=== PATIENT | male | born 1965 | race African-American/Black ===

== ENCOUNTER 2018-02-10 09:29 | Emergency (ER) | payer SELFPAY ==
--- NOTE | 2018-02-10 11:21 | EDPHYS ---
Physician Documentation [facility] Name: Ganesh Mendes Age: 52 yrs Sex: Male : 1965 Arrival Date: 02/10/2018 Time: 09:31 Bed 17 Private MD: None, None ED Physician Neal Boone HPI: 02/10 10:17 This 52 yrs old presents to ER via Unassigned with complaints of Sore Throat. kb 10:17 The patient presents with sore throat. The patient describes throat pain as kb intermittent. Onset: The symptoms/episode began/occurred 1 month(s) ago, and became worse yesterday. Severity of symptoms: At their worst the symptoms were moderate, in the emergency department the symptoms are unchanged. Modifying factors: The symptoms are alleviated by nothing, the symptoms are aggravated by swallowing, Patient's oral intake status: good Denies contact with similarly ill indivduals. Associated signs and symptoms: Pertinent positives: fever, Sore throat Pertinent negatives chest pain, chills, cough, diarrhea, dysphagia, earache, flu-like symptoms, headache, nausea, rhinorrhea, shortness of breath, vomiting. The patient has not experienced similar symptoms in the past. The patient has not recently seen a physician. Pt states he has had a sore throat intermittently for a month. Pain is worse in the mornings and gets better throughout the day. Reports fever, "felt hot," but did not take temperature. Has had pain every morning for the past 3 days, worse yesterday.. Historical: - Allergies: 11:40 No Known Allergies; hj - Home Meds: 11:40 None [Active]; hj - PMHx: 11:40 None; hj - PSHx: 11:40 None; hj - Immunization history:: Adult Immunizations up to date. - Social history:: Smoking status: Patient/guardian denies using tobacco, Patient/guardian denies using alcohol. - Ebola Screening: : Patient negative for fever greater than or equal to 101.5 degrees Fahrenheit, and additional compatible Ebola Virus Disease symptoms Patient denies exposure to infectious person Patient denies travel to an Ebola-affected area in the 21 days before illness onset. ROS: 10:17 Neck: Negative for injury, pain, and swelling, Cardiovascular: Negative for chest pain, kb palpitations, and edema, Respiratory: Negative for shortness of breath, cough, wheezing, and pleuritic chest pain, Abdomen/GI: Negative for abdominal pain, nausea, vomiting, diarrhea, and constipation, Back: Negative for injury and pain, MS/Extremity: Negative for injury and deformity, Skin: Negative for injury, rash, and discoloration, Neuro: Negative for headache, weakness, numbness, tingling, and seizure. 10:17 Constitutional: Positive for fever. 10:17 ENT: Positive for sore throat. Exam: 10:17 Constitutional: This is a well developed, well nourished patient who is awake, alert, kb and in no acute distress. Head/Face: Normocephalic, atraumatic. Chest/axilla: Normal chest wall appearance and motion. Nontender with no deformity. No lesions are appreciated. Cardiovascular: Regular rate and rhythm with a normal S1 and S2. No gallops, murmurs, or rubs. Normal PMI, no JVD. No pulse deficits. Respiratory: Lungs have equal breath sounds bilaterally, clear to auscultation and percussion. No rales, rhonchi or wheezes noted. No increased work of breathing, no retractions or nasal flaring. Abdomen/GI: Soft, non-tender, with normal bowel sounds. No distension or tympany. No guarding or rebound. No evidence of tenderness throughout. Back: No spinal tenderness. No costovertebral tenderness. Full range of motion. Skin: Warm, dry with normal turgor. Normal color with no rashes, no lesions, and no evidence of cellulitis. MS/ Extremity: Pulses equal, no cyanosis. Neurovascular intact. Full, normal range of motion. Neuro: Awake and alert, GCS 15, oriented to person, place, time, and situation. Cranial nerves II-XII grossly intact. Motor strength 5/5 in all extremities. Sensory grossly intact. Cerebellar exam normal. Normal gait. 10:17 ENT: Posterior pharynx: Airway: normal, no evidence of obstruction, Tonsils: bilaterally enlarged, with erythema, Uvula: normal, midline, swelling, that is mild, erythema, that is moderate, exudate, is not appreciated. Vital Signs: 11:41 BP 124 / 81; Pulse 75; Resp 18; Pulse Ox 100% on R/A; hj MDM: 10:16 Patient medically screened. kb 10:17 Data reviewed: vital signs, nurses notes. Data interpreted: Pulse oximetry: on room air kb is 100 %. Interpretation: normal. 11:19 Counseling: I had a detailed discussion with the patient and/or guardian regarding: the kb historical points, exam findings, and any diagnostic results supporting the discharge/admit diagnosis, lab results, the need for outpatient follow up, a family practitioner, to return to the emergency department if symptoms worsen or persist or if there are any questions or concerns that arise at home. 02/10 10:22 Order name: Strep kb Administered Medications: No medications were administered Disposition: 14:24 Co-signature as Attending Physician, Neal Boone MD. rn Disposition: 02/10/18 11:20 Discharged to Home. Impression: Acute pharyngitis. - Condition is Stable. - Discharge Instructions: Pharyngitis, [id number], Sore Throat, [id number]. - Medication Reconciliation Form, Thank You Letter, Antibiotic Education, Prescription Opioid Use, Work release form form. - Follow up: Emergency Department; When: As needed; Reason: Worsening of condition. Follow up: Private Physician; When: 2 - 3 days; Reason: Recheck today's complaints, Continuance of care, Re-evaluation by your physician. Signatures: Dispatcher [employer] EDMS Keya Montoya, COMPLIANCE REPRESENTATIVE-C COMPLIANCE REPRESENTATIVE-Ckb Neal Boone MD MD rn Joaquin, Henry, RN RN hj Corrections: (The following items were deleted from the chart) 11:41 11:20 02/10/2018 11:20 Discharged to Home. Impression: Acute pharyngitis. Condition is hj Stable. Forms are Medication Reconciliation Form, Thank You Letter, Antibiotic Education, Prescription Opioid Use. Follow up: Emergency Department; When: As needed; Reason: Worsening of condition. Follow up: Private Physician; When: 2 - 3 days; Reason: Recheck today's complaints, Continuance of care, Re-evaluation by your physician. kb
--- NOTE | 2018-02-10 11:21 | ER ---
Nurse's Notes [facility] Name: Ganesh Mendes Age: 52 yrs Sex: Male : 1965 Arrival Date: 02/10/2018 Time: 09:31 Bed 17 Private MD: None, None Diagnosis: Acute pharyngitis Presentation: 02/10 10:06 Note paper chart. hj 10:06 Acuity: LELO 4 hj 10:06 Presenting complaint: Patient states: sore throat for a year and its worse yesterday;. hj Transition of care: patient was not received from another setting of care. Onset of symptoms was February 10, 2018. Risk Assessment: Do you want to hurt yourself or someone else? Patient reports no desire to harm self or others. Initial Sepsis Screen: Does the patient meet any 2 criteria? No. Patient's initial sepsis screen is negative. Does the patient have a suspected source of infection? No. Patient's initial sepsis screen is negative. Care prior to arrival: None. 10:06 Method Of Arrival: Ambulatory Historical: - Allergies: 11:40 No Known Allergies; hj - Home Meds: 11:40 None [Active]; hj - PMHx: 11:40 None; hj - PSHx: 11:40 None; hj - Immunization history:: Adult Immunizations up to date. - Social history:: Smoking status: Patient/guardian denies using tobacco, Patient/guardian denies using alcohol. - Ebola Screening: : Patient negative for fever greater than or equal to 101.5 degrees Fahrenheit, and additional compatible Ebola Virus Disease symptoms Patient denies exposure to infectious person Patient denies travel to an Ebola-affected area in the 21 days before illness onset. Screenin:06 Abuse screen: Denies threats or abuse. Denies injuries from another. Nutritional hj screening: No deficits noted. Tuberculosis screening: No symptoms or risk factors identified. Fall Risk None identified. Assessment: 10:06 General: Appears in no apparent distress. uncomfortable, Behavior is calm, cooperative, hj appropriate for age. Pain: Complains of pain in throat. Neuro: Level of Consciousness is awake, alert, obeys commands, Oriented to person, place, time, situation, Appropriate for age. Cardiovascular: Capillary refill < 3 seconds Patient's skin is warm and dry. Respiratory: Airway is patent Respiratory effort is even, unlabored, Respiratory pattern is regular, Breath sounds are clear bilaterally. GI: No signs and/or symptoms were reported involving the gastrointestinal system. : No signs and/or symptoms were reported regarding the genitourinary system. EENT: Throat is reddened. Derm: No signs and/or symptoms reported regarding the dermatologic system. Musculoskeletal: No signs and/or symptoms reported regarding the musculoskeletal system. 11:12 Reassessment: strep negative per Nestor, lab;. hj Vital Signs: 11:41 BP 124 / 81; Pulse 75; Resp 18; Pulse Ox 100% on R/A; hj ED Course: 09:31 Patient arrived in ED. mr 09:31 None, None is Private Physician. mr 10:05 Reggie Quinones, RN is Primary Nurse. hj 10:16 [facility]C [facility]. kb 10:16 Neal Boone MD is Attending Physician. kb 11:16 Triage completed. hj 11:16 Arm band placed on right wrist. hj 11:38 No provider procedures requiring assistance completed. Patient did not have IV access hj during this emergency room visit. 11:40 Patient has correct armband on for positive identification. Bed in low position. Call hj light in reach. Side rails up X 1. Administered Medications: No medications were administered Outcome: 11:20 Discharge ordered by . kb 11:39 Discharged to home ambulatory. hj 11:39 Condition: stable 11:39 Discharge instructions given to patient, Instructed on discharge instructions, follow up and referral plans. Demonstrated understanding of instructions, follow-up care. 11:41 Patient left the ED. hj Signatures: Keya Montoya FNP-C FNP-Ckb Rivera, Maria Reggie Quinones, RN RN ju
== END 2018-02-10 11:41 | disposition home or self-care (01) ==
LOC: ER 09:29
DX: J02.9 Acute pharyngitis, unspecified (principal)
CPT/HCPCS: 87070; 87081; 99281

== ENCOUNTER 2019-06-11 03:56 | Emergency (ER) | payer SELFPAY ==
[2019-06-11] MEDS ORDERED: TETANUS & DIPHTHERIA TOX,ADULT 0.5 ML VIAL ONE (05:06)
[2019-06-11] MEDS ORDERED: LIDOCAINE 1% MPF 5 ML VIAL ONE (05:40)
[2019-06-11] MEDS ORDERED: LIDOCAINE 1% MPF 30 ML VIAL ONE (05:41)
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
[2019-06-11] MEDS ORDERED: ONDANSETRON 4 MG (ODT) TAB ONE (06:16)
[2019-06-11] MEDS ORDERED: TRAMADOL HCL 50 MG TAB ONE (06:17)
[2019-06-11 06:27] VITALS: TEMP 98.3
[2019-06-11 06:29] VITALS: BP 120/83; O2SAT 98
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
== END 2019-06-11 06:22 | disposition home or self-care (01) ==
LOC: ER 03:56
PROC: 0JQ10ZZ Repair Face Subcutaneous Tissue and Fascia, Open Approach (ICD-10-PCS; principal; 2019-06-11)
PROC: 0CQ0XZZ Repair Upper Lip, External Approach (ICD-10-PCS; 2019-06-11)
DX: S01.511A Laceration without foreign body of lip, initial encounter (principal); S02.2XXA Fracture of nasal bones, initial encounter for closed fracture; W50.0XXA Accidental hit or strike by another person, initial encounter; Y93.9 Activity, unspecified; Y92.9 Unspecified place or not applicable; Z23 Encounter for immunization
CPT/HCPCS: 70450; 70486; 76377; 90471; 90714; 99284

== ENCOUNTER 2021-05-03 11:53 | Emergency (ER) | payer OTHER, SELFPAY ==
[2021-05-03] MEDS ORDERED: ONDANSETRON 4 MG/2 ML VIAL ONE (15:24)
[2021-05-03] MEDS ORDERED: NA CHLORIDE 0.9% 1,000 ML ONE ×2 (15:24→16:28)
[2021-05-03 15:36] LABS: Absolute Lymphocytes (CBC) 0.2 K/uL (0.7-4.9); Basophils % 0.5 % (0-1.3); Hematocrit 47.7 % (39.6-49.0); Lymphocytes % 4.1 % (15.3-44.8); MPV 8.8 fL (7.6-11.3)
[2021-05-03 15:52] LABS: Albumin 3.9 g/dL (3.4-5.0); Bilirubin Direct 0.2 mg/dL (0-0.2); Bilirubin Total 1.2 mg/dL (0.2-1.0); Magnesium 2.3 mg/dL (1.8-2.4); Potassium 3.5 mmol/L (3.5-5.1); Protein, Total 8.3 g/dL (6.4-8.2)
[2021-05-03 16:00] LABS: Blood Morphology Comment NOT SEEN (NOT SEEN); Platelet Estimate ADEQ; White Blood Cell Scan OK (OK)
--- NOTE | 2021-05-03 16:37 | RAD REPORT ---
EXAM DESCRIPTION: CTAbdomen Pelvis W Contrast - 05/03/2021 4:19 pm CLINICAL HISTORY: ABD PAIN COMPARISON: No comparisons TECHNIQUE: CT of the abdomen and pelvis was performed. All CT scans are performed using dose optimization technique as appropriate and may include automated exposure control or mA/KV adjustment according to patient size. FINDINGS: Lower chest: Small hiatal hernia. Liver: Too small to characterize liver lesions which are likely benign. Biliary: No biliary ductal dilatation. Stomach: No significant focal abnormality. Duodenum: No significant focal abnormality. Pancreas: No significant abnormality. Spleen: No significant abnormality. Adrenal: No suspicious lesions. Kidney/ureter: No hydronephrosis. No renal calculi. Too small to characterize and/or benign appearing renal lesions are noted. Retroperitoneum: No retroperitoneal adenopathy. Vascular: No aneurysm. Bowel: Mesenteric edema, mild wall thickening, and fluid-filled distal small bowel. No evidence of liam wel obstruction. The appendix is within normal limits. Peritoneum: Mesenteric edema is noted. There is some fluid trapped in the right inguinal canal. Proba ble bilateral varicoceles. Fat containing umbilical hernia. Bladder: Grossly unremarkable. Reproductive: No adnexal masses. Bones: No acute fracture. Grade 1 anterolisthesis of L4 on L5. Other: n/a IMPRESSION: Mesenteric edema and small bowel wall thickening at the ileum most likely representing e nteritis. No bowel obstruction. Normal appendix.
[2021-05-03] MEDS ORDERED: CIPROFLOXACIN HCL 500 MG TAB ONE (17:16)
[2021-05-03] MEDS ORDERED: MAGNES/ALUMIN/SIMET 30ML UCUP ONE (17:26)
[2021-05-03] MEDS ORDERED: LIDOCAINE VISCOUS 2% SOLN 15 ML UDC ONE (17:27)
--- NOTE | 2021-05-03 17:29 | ER ---
Nurse's Notes [facility] Name: Ganesh Mendes Age: 55 yrs Sex: Male : 1965 Arrival Date: 05/03/2021 Time: 11:56 Bed 20 Private MD: Diagnosis: Nausea with vomiting, unspecified;Diarrhea, unspecified Presentation: 05/03 12:27 Chief complaint: Patient states: N/V/D that began last night. Pt states, "now my legs ss feels like rubber bands and my head hurts. I have no energy.". Coronavirus screen: Client denies travel out of the [place] in the last 14 days. Ebola Screen: Patient denies exposure to infectious person. Patient denies travel to an Ebola-affected area in the 21 days before illness onset. Initial Sepsis Screen: Does the patient meet any 2 criteria? No. Patient's initial sepsis screen is negative. Does the patient have a suspected source of infection? No. Patient's initial sepsis screen is negative. Risk Assessment: Do you want to hurt yourself or someone else? Patient reports no desire to harm self or others. Onset of symptoms was May 02, 2021. 12:27 Method Of Arrival: Ambulatory ss 12:27 Acuity: LELO 3 ss Historical: - Allergies: 12:28 No Known Allergies; ss - Home Meds: 12:29 None [Active]; ss - PMHx: 12:29 None; ss - PSHx: 12:29 None; ss - Immunization history:: Client reports receiving the 2nd dose of the Covid vaccine. - Social history:: Smoking status: Patient denies any tobacco usage or history of. Screenin:14 Abuse screen: Denies threats or abuse. Nutritional screening: No deficits noted. ll3 Tuberculosis screening: No symptoms or risk factors identified. 17:38 Fall Risk IV access (20 points). Mental Status- Oriented to own ability (0 pts). Total ll3 Woo Fall Scale indicates No Risk (0-24 pts). Assessment: 15:14 General: Appears in no apparent distress. uncomfortable, Behavior is calm, cooperative. ll3 Pain: Complains of pain in right upper quadrant and left upper quadrant Pain does not radiate. Quality of pain is described as aching, crampy, Pain began Last night Alleviated by rest, Aggravated by eating, drinking, repositioning. Neuro: Level of Consciousness is awake, alert, obeys commands, Oriented to person, place, time, situation, Speech is normal, Facial symmetry appears normal. Cardiovascular: Patient's skin is warm and dry. Respiratory: Airway is patent Respiratory effort is even, unlabored, Respiratory pattern is regular, symmetrical. GI: Abdomen is round non-distended, Stools are reported to be loose, Abd is soft and non tender X 4 quads. Reports upper abdominal pain, constipation, diarrhea, indigestion, intolerance of fluids, intolerance of food, nausea, vomiting, since Last night Patient currently denies tolerance of fluids, tolerance of food. Derm: Skin is pink, warm \\T\\ dry. 16:30 Reassessment: Patient appears in no apparent distress at this time. Patient and/or ll3 family updated on plan of care and expected duration. Pain level reassessed. Patient is alert, oriented x 3, equal unlabored respirations, skin warm/dry/pink. Patient states symptoms have improved. 17:21 Reassessment: Patient appears in no apparent distress at this time. Patient and/or ll3 family updated on plan of care and expected duration. Pain level reassessed. Patient is alert, oriented x 3, equal unlabored respirations, skin warm/dry/pink. Patient states feeling better. Vital Signs: 12:27 Pulse 110; Resp 17; Pulse Ox 97% on R/A; Weight 81.65 kg; Height 5 ft. 7 in. (170.18 ss cm); Pain 9/10; 12:28 BP 136 / 98; Pulse 104; Temp 98.6(O); ss 15:05 BP 143 / 100; Pulse 97; Resp 15; Pulse Ox 98% on R/A; ll3 16:30 BP 125 / 89; Pulse 85; Resp 15; Pulse Ox 98% on R/A; ll3 17:37 BP 133 / 86; Pulse 79; Resp 15; Pulse Ox 98% on R/A; ll3 12:27 Body Mass Index 28.19 (81.65 kg, 170.18 cm) ED Course: 11:56 Patient arrived in ED. as 12:28 Triage completed. ss 12:28 Arm band placed on left wrist. ss 15:12 Chintan Patten PA is PHCP. cp 15:12 Martin Marcos MD is Attending Physician. cp 15:13 Paula Newberry RN is Primary Nurse. ll3 15:14 Patient has correct armband on for positive identification. Bed in low position. Call ll3 light in reach. Side rails up X 1. 15:30 Inserted saline lock: 20 gauge in right antecubital area, using aseptic technique. tp1 Blood collected. 16:19 CT Abd/Pelvis - IV Contrast Only In Process Unspecified. EDMS 17:38 No provider procedures requiring assistance completed. ll3 17:46 IV discontinued, intact, bleeding controlled, No redness/swelling at site. Pressure ll3 dressing applied. Administered Medications: 15:29 Drug: NS 0.9% 1000 ml Route: IV; Rate: 1 bolus; Site: right antecubital; ld1 16:40 Follow up: Response: No adverse reaction; IV Status: Completed infusion; IV Intake: ll3 1000ml 15:29 Drug: Zofran (Ondansetron) 4 mg Route: IVP; Site: right antecubital; ld1 15:30 Follow up: Response: No adverse reaction ld1 16:41 Drug: NS 0.9% 1000 ml Route: IV; Rate: 1 bolus; Site: right antecubital; ll3 17:48 Follow up: Response: No adverse reaction; IV Status: Completed infusion; IV Intake: ll3 1000ml 17:20 Drug: Cipro (ciprofloxacin) 500 mg Route: PO; ll3 17:38 Follow up: Response: No adverse reaction ll3 17:30 Drug: GI Cocktail without - (Maalox Suspension 30 ml, Lidocaine Liquid 2 % 15 ll3 ml) Route: PO; 17:48 Follow up: Response: No adverse reaction ll3 Intake: 16:40 IV: 1000ml; Total: 1000ml. ll3 17:48 IV: 1000ml; Total: 2000ml. ll3 Outcome: 17:29 Discharge ordered by . cp 17:46 Discharged to home ambulatory. ll3 17:46 Condition: stable 17:46 Discharge instructions given to patient, Instructed on discharge instructions, follow up and referral plans. medication usage, Demonstrated understanding of instructions, follow-up care, medications. 17:46 Patient left the ED. ll3 Signatures: Dispatcher [employer] Francine Fulton Shelby, RN RN ss Chintan Patten PA PA cp Dibbern, Lauren, RN RN ld1 Paula Newberry, RN RN ll3 Rita Felix 1
--- NOTE | 2021-05-03 17:30 | EDPHYS ---
Physician Documentation [facility] Name: Ganesh Mendes Age: 55 yrs Sex: Male : 1965 Arrival Date: 05/03/2021 Time: 11:56 Bed 20 Private MD: ED Physician Martin Marcos HPI: 05/03 15:25 This 55 yrs old Black Male presents to ER via Ambulatory with complaints of cp Vomiting/Diarrhea, Weakness. 15:25 The patient presents to the emergency department with nausea, that is moderate, cp vomiting, that is continuous, described as bilious, diarrhea, that is continuous. Onset: The symptoms/episode began/occurred yesterday. Possible causes: bad food exposure. Associated signs and symptoms: Pertinent negatives: constipation, fever, GI bleeding. Severity of symptoms: in the emergency department the symptoms are unchanged despite home interventions. Historical: - Allergies: 12:28 No Known Allergies; ss - Home Meds: 12:29 None [Active]; ss - PMHx: 12:29 None; ss - PSHx: 12:29 None; ss - Immunization history:: Client reports receiving the 2nd dose of the Covid vaccine. - Social history:: Smoking status: Patient denies any tobacco usage or history of. ROS: 15:30 Constitutional: Positive for poor PO intake, Negative for body aches, chills, fever. cp 15:30 ENT: Negative for drainage from ear(s), ear pain, sore throat, difficulty swallowing, cp difficulty handling secretions. 15:30 Respiratory: Negative for cough, shortness of breath, wheezing. 15:30 Abdomen/GI: Positive for abdominal pain, nausea, vomiting, and diarrhea, anorexia, Negative for constipation, hematemesis, black/tarry stool, rectal bleeding. 15:30 : Negative for urinary symptoms. Exam: 15:33 Constitutional: The patient appears in no acute distress, alert, awake, non-toxic, well cp developed, well nourished. 15:33 Head/Face: Normocephalic, atraumatic. cp 15:33 Eyes: Periorbital structures: appear normal, Conjunctiva: normal, no exudate, no injection, Sclera: no appreciated abnormality, Lids and lashes: appear normal, bilaterally. 15:33 ENT: External ear(s): are unremarkable, Nose: is normal, Mouth: Lips: moist, Oral mucosa: moist, Posterior pharynx: Airway: no evidence of obstruction, patent. 15:33 Chest/axilla: Inspection: normal. 15:33 Cardiovascular: Rate: normal, Rhythm: regular. 15:33 Respiratory: the patient does not display signs of respiratory distress, Respirations: normal, no use of accessory muscles, no retractions, labored breathing, is not present, Breath sounds: are clear throughout, no decreased breath sounds, no stridor, no wheezing. 15:33 Abdomen/GI: Inspection: abdomen appears normal, Bowel sounds: active, all quadrants, Palpation: soft, in all quadrants, mild abdominal tenderness, in the mid abdomen, rebound tenderness, is not appreciated, involuntary guarding, is not appreciated. 15:33 Back: pain, is absent, ROM is normal. 15:33 Neuro: Orientation: to person, place \T\ time. Mentation: is normal, Motor: moves all fours, strength is normal, Sensation: no obvious gross deficits. Vital Signs: 12:27 Pulse 110; Resp 17; Pulse Ox 97% on R/A; Weight 81.65 kg; Height 5 ft. 7 in. (170.18 ss cm); Pain 9/10; 12:28 BP 136 / 98; Pulse 104; Temp 98.6(O); ss 15:05 BP 143 / 100; Pulse 97; Resp 15; Pulse Ox 98% on R/A; ll3 16:30 BP 125 / 89; Pulse 85; Resp 15; Pulse Ox 98% on R/A; ll3 17:37 BP 133 / 86; Pulse 79; Resp 15; Pulse Ox 98% on R/A; ll3 12:27 Body Mass Index 28.19 (81.65 kg, 170.18 cm) ss MDM: 15:13 Patient medically screened. cp 16:00 Differential diagnosis: gastritis, appendicitis, diverticulitis, viral gastroenteritis, cp gastroenteritis, dehydration. 17:28 Data reviewed: vital signs, nurses notes, lab test result(s), radiologic studies, CT cp scan. 17:28 Counseling: I had a detailed discussion with the patient and/or guardian regarding: the cp historical points, exam findings, and any diagnostic results supporting the discharge/admit diagnosis, lab results, radiology results, to return to the emergency department if symptoms worsen or persist or if there are any questions or concerns that arise at home. Response to treatment: the patient's symptoms have markedly improved after treatment, patient is well hydrated. VSS. Nausea markedly improved and vomiting resolved. Will discharge to home for continued monitoring. 05/03 15:18 Order name: Basic Metabolic Panel; Complete Time: 15:55 cp 05/03 15:18 Order name: CBC with Diff; Complete Time: 16:05 cp 05/03 16:05 Interpretation: Normal except: LV% 85.1; LYM% 4.1; LYMA 0.2. cp 05/03 15:18 Order name: Hepatic Function; Complete Time: 15:55 cp 05/03 15:18 Order name: Lipase; Complete Time: 15:55 cp 05/03 15:19 Order name: Magnesium; Complete Time: 15:55 cp 05/03 16:00 Order name: CBC Smear Scan; Complete Time: 16:05 EDMS 05/03 15:18 Order name: IV Saline Lock; Complete Time: 15:29 cp 05/03 15:19 Order name: Labs collected and sent; Complete Time: 15:30 cp 05/03 15:19 Order name: CT Abd/Pelvis - IV Contrast Only; Complete Time: 17:12 cp 05/03 17:13 Order name: PO challenge; Complete Time: 17:20 cp Administered Medications: 15:29 Drug: NS 0.9% 1000 ml Route: IV; Rate: 1 bolus; Site: right antecubital; ld1 16:40 Follow up: Response: No adverse reaction; IV Status: Completed infusion; IV Intake: ll3 1000ml 15:29 Drug: Zofran (Ondansetron) 4 mg Route: IVP; Site: right antecubital; ld1 15:30 Follow up: Response: No adverse reaction ld1 16:41 Drug: NS 0.9% 1000 ml Route: IV; Rate: 1 bolus; Site: right antecubital; ll3 17:48 Follow up: Response: No adverse reaction; IV Status: Completed infusion; IV Intake: ll3 1000ml 17:20 Drug: Cipro (ciprofloxacin) 500 mg Route: PO; ll3 17:38 Follow up: Response: No adverse reaction ll3 17:30 Drug: GI Cocktail without - (Maalox Suspension 30 ml, Lidocaine Liquid 2 % 15 ll3 ml) Route: PO; 17:48 Follow up: Response: No adverse reaction ll3 Disposition: 17:45 Chart complete. cp Disposition Summary: 05/03/21 17:29 Discharge Ordered Location: Home cp Problem: new cp Symptoms: have improved cp Condition: Stable cp Diagnosis - Nausea with vomiting, unspecified cp - Diarrhea, unspecified cp Followup: cp - With: Private Physician - When: 2 - 3 days - Reason: Recheck today's complaints Discharge Instructions: - Discharge Summary Sheet cp - Food Choices to Help Relieve Diarrhea, Adult cp - Diarrhea, Adult cp - Nausea and Vomiting, Adult cp Forms: - Medication Reconciliation Form cp - Thank You Letter cp - Antibiotic Education cp - Prescription Opioid Use cp Prescriptions: - Protonix 40 mg Oral Tablet - take 1 tablet by ORAL route once daily; 30 tablet; Refills: 0, Product cp Selection Permitted - Cipro 500 mg Oral Tablet - take 1 tablet by ORAL route every 12 hours for 7 days; 14 tablet; Refills: 0, cp Product Selection Permitted - promethazine 25 mg Oral Tablet - take 1 tablet by ORAL route every 6 hours As needed; 20 tablet; Refills: 0, cp Product Selection Permitted Addendum: 05/06/2021 11:21 Co-signature as Attending Physician, Martin Marcos MD I agree with the assessment and k dr plan of care. Signatures: Dispatcher [employer] [facility] Martin Marcos MD MD [facility] Yessy Hirsch RN RN Chintan Florentino PA PA cp Chelsea Acosta RN RN ld1 Paula Newberry RN RN ll3
[2021-05-03 17:51] VITALS: TEMP 98.6
[2021-05-03 17:53] VITALS: O2SAT 98
[2021-05-03 17:55] VITALS: BP 133/86
== END 2021-05-03 17:46 | disposition home or self-care (01) ==
LOC: ER 11:53
DX: R19.7 Diarrhea, unspecified (principal)
CPT/HCPCS: 36415; 74177; 80048; 80076; 83690; 83735; 85025; 96361; 96374; 99284; J2405; J7030; Q9967

== ENCOUNTER 2022-01-28 13:38 | Emergency (ER) | payer SELFPAY ==
[2022-01-28] MEDS ORDERED: NA CHLORIDE 0.9% 1,000 ML ONE (15:18)
[2022-01-28 15:32] LABS: Absolute Lymphocytes (CBC) 1.2 K/uL (0.7-4.9); MCV 90.7 fL (80-100); MPV 8.4 fL (7.6-11.3); RBC Red Blood Cell Count 4.41 M/uL (4.33-5.43)
[2022-01-28 15:56] LABS: Albumin 3.2 g/dL (3.4-5.0); Bilirubin Total 0.9 mg/dL (0.2-1.0); Potassium 3.7 mmol/L (3.5-5.1); Protein, Total 6.4 g/dL (6.4-8.2)
--- NOTE | 2022-01-28 16:56 | RAD REPORT ---
EXAM DESCRIPTION: CTAbdomen Pelvis W Contrast - 01/28/2022 4:38 pm CLINICAL HISTORY: pain COMPARISON: Abdomen Pelvis W Contrast dated 05/03/2021 TECHNIQUE: CT of the abdomen and pelvis was performed. All CT scans are performed using dose optimization technique as appropriate and may include automated exposure control or mA/KV adjustment according to patient size. FINDINGS: Lower chest: Circumferential thickened distal esophagus with may reflect esophagitis. Liver: Too small to characterize liver lesions which are unchanged and likely benign. Biliary: Contracted gallbladder. No biliary ductal dilatation. Stomach: No significant focal abnormality. Duodenum: No significant focal abnormality. Pancreas: No significant abnormality. Spleen: No significant abnormality. Adrenal: No suspicious lesions. Kidney/ureter: No hydronephrosis. No renal calculi. Too small to characterize and/or benign appearing renal lesions are noted. Retroperitoneum: No retroperitoneal adenopathy. Vascular: No aneurysm. Bowel: No bowel obstruction. Inflammatory changes in the right lower quadrant have modestly improved. There is still some free fluid in the right lower quadrant. No appendicitis.. Peritoneum: Small fat containing umbilical hernia. Bilateral inguinal hernias. There is fluid in the right inguinal canal measuring 9.7 x 3.2 cm. There is mild peripheral enhancement. Probable varicocel es in the scrotum. Bladder: Grossly unremarkable. Reproductive: No adnexal masses. Bones: No acute fracture. Grade 1 anterolisthesis of L4 on L5. Other: n/a IMPRESSION: Inflammatory changes in the right lower quadrant have been since 05/03/2021. Some free f luid is again noted in the mesentery in the right lower quadrant. In normal appendix identified. No b owel obstruction is identified. Nonspecific fluid in the small bowel could represent an enteritis or malabsorptive process. Enhancing fluid in the right inguinal canal has increased in size. This may be intraperitoneal fluid which has traversed a fat containing right inguinal hernia. Probable varicoceles. Prominent vascular structures in the scrotum.
--- NOTE | 2022-01-28 17:21 | EDPHYS ---
Physician Documentation [facility] Name: Ganesh Mendes Age: 56 yrs Sex: Male : 1965 Arrival Date: 01/28/2022 Time: 13:39 Bed 20 Private MD: ED Physician Neal Boone HPI: 01/28 14:55 This 56 yrs old Black Male presents to ER via Ambulatory with complaints of Abdominal rn Pain. 14:55 The patient presents with abdominal pain in the lower abdomen. Onset: The rn symptoms/episode began/occurred 1 month(s) ago. Associated signs and symptoms: Pertinent positives: constipation, Pertinent negatives: blood in stools, fever, vomiting. The symptoms are described as crampy. Modifying factors: The symptoms are alleviated by nothing, the symptoms are aggravated by nothing. Severity of pain: At its worst the pain was mild in the emergency department the pain is unchanged. The patient has experienced similar episodes in the past. The patient has not recently seen a physician. 14:56 Has not tried any laxatives or stool softeners.. rn Historical: - Allergies: 14:27 No Known Allergies; bm7 - Home Meds: 14:27 None [Active]; bm7 - PMHx: 14:27 None; bm7 - PSHx: 14:27 None; bm7 - Immunization history:: Adult Immunizations up to date, Client reports receiving the 2nd dose of the Covid vaccine, Client reports receiving the 1st dose of the Covid vaccine. - Social history:: Smoking status: Patient denies any tobacco usage or history of. - Family history:: not pertinent. - Hospitalizations: : No recent hospitalization is reported. ROS: 14:56 Constitutional: Negative for fever, chills, and weight loss, Eyes: Negative for injury, rn pain, redness, and discharge, Cardiovascular: Negative for chest pain, palpitations, and edema, Respiratory: Negative for shortness of breath, cough, wheezing, and pleuritic chest pain, Abdomen/GI: Negative for nausea, vomiting, diarrhea Back: Negative for injury and pain, : Negative for injury, bleeding, discharge, and swelling, MS/Extremity: Negative for injury and deformity, Skin: Negative for injury, rash, and discoloration, Neuro: Negative for headache, weakness, numbness, tingling, and seizure. Exam: 14:56 Constitutional: This is a well developed, well nourished patient who is awake, alert, rn and in no acute distress. Head/Face: Normocephalic, atraumatic. Cardiovascular: Regular rate and rhythm. No pulse deficits. Respiratory: No increased work of breathing, no retractions or nasal flaring. Abdomen/GI: Soft, mild lower abd tenderness Skin: Warm, dry MS/ Extremity: Pulses equal, no cyanosis. Neuro: Awake and alert, GCS 15 Vital Signs: 14:26 BP 113 / 84; Pulse 62; Resp 16; Temp 98.3(TE); Pulse Ox 100% on R/A; Weight 75.75 kg bm7 (R); Height 5 ft. 7 in. (170.18 cm); Pain 8/10; 17:36 BP 113 / 84; Pulse 63; Resp 16; Pulse Ox 96% on R/A; tp1 14:26 Body Mass Index 26.16 (75.75 kg, 170.18 cm) bm7 MDM: 14:45 Patient medically screened. rn 17:19 Differential diagnosis: diverticulitis, non-specific abd pain, pancreatitis, rn constipation, dehydration. Data reviewed: vital signs, nurses notes, lab test result(s), radiologic studies, CT scan, and as a result, I will discharge patient. Counseling: I had a detailed discussion with the patient and/or guardian regarding: the historical points, exam findings, and any diagnostic results supporting the discharge/admit diagnosis, lab results, radiology results, the need for outpatient follow up, to return to the emergency department if symptoms worsen or persist or if there are any questions or concerns that arise at home. Special discussion: I discussed with the patient/guardian in detail that at this point there is no indication for admission to the hospital. It is understood, however, that if the symptoms persist or worsen the patient needs to return immediately for re-evaluation. Based on the history and exam findings, there is no indication for further emergent testing or inpatient evaluation. I discussed with the patient/guardian the need to see the collections attorney for further evaluation of the symptoms. I discussed with the patient/guardian the need to see the primary care provider for further evaluation of the symptoms. ED course: No acute changes in CT abdomen or bloodwork, chronic findings, will dc home with instructions for hydration and laxatives. . 01/28 15:34 Order name: CBC with Automated Diff; Complete Time: 16:28 EDMS 01/28 15:56 Order name: Comprehensive Metabolic Panel; Complete Time: 16:28 EDMS 01/28 15:56 Order name: Lipase; Complete Time: 16:28 EDMS 01/28 14:45 Order name: CT Abd/Pelvis - IV Contrast Only rn 01/28 14:45 Order name: IV Saline Lock; Complete Time: 15:21 rn 01/28 14:45 Order name: Labs collected and sent; Complete Time: 15:21 rn 01/28 16:57 Order name: CT; Complete Time: 17:18 EDMS Administered Medications: 15:15 Drug: NS 0.9% 1000 ml Route: IV; Rate: 1 bolus; Site: left antecubital; kb3 Disposition Summary: 01/28/22 17:20 Discharge Ordered Location: Home rn Problem: chronic rn Symptoms: have improved rn Condition: Stable rn Diagnosis - Constipation, unspecified rn - Abdominal pain, unspecified rn Followup: rn - With: Private Physician - When: As needed - Reason: Recheck today's complaints, Re-evaluation by your physician Discharge Instructions: - Discharge Summary Sheet rn - Abdominal Pain, Adult rn - Constipation, Adult rn Forms: - Medication Reconciliation Form rn - Thank You Letter rn - Antibiotic returned case inspector - Prescription Opioid Use rn - Work release form kb3 Signatures: Dispatcher [employer] Neal Beatty MD MD rn McCarthy, Brittany, RN RN bm7 Pinky Buckner, RN RN kb3
--- NOTE | 2022-01-28 17:21 | ER ---
Nurse's Notes [facility] Name: Ganesh Mendes Age: 56 yrs Sex: Male : 1965 Arrival Date: 01/28/2022 Time: 13:39 Bed 20 Private MD: Diagnosis: Constipation, unspecified;Abdominal pain, unspecified Presentation: 01/28 14:26 Chief complaint: Patient states: I have been constipated for about a month now and its bm7 starting to hurt when I walk. Coronavirus screen: At this time, the client does not indicate any symptoms associated with coronavirus-19. Ebola Screen: No symptoms or risks identified at this time. Initial Sepsis Screen: Does the patient meet any 2 criteria? No. Patient's initial sepsis screen is negative. Does the patient have a suspected source of infection? No. Patient's initial sepsis screen is negative. Risk Assessment: Do you want to hurt yourself or someone else? Patient reports no desire to harm self or others. Onset of symptoms was December 23, 2021. 14:26 Method Of Arrival: Ambulatory 7 14:26 Acuity: LELO 3 bm7 Triage Assessment: 14:27 General: Appears in no apparent distress. uncomfortable, Behavior is calm, cooperative, bm7 appropriate for age. Pain: Complains of pain in right lower quadrant and left lower quadrant Pain does not radiate. EENT: No deficits noted. No signs and/or symptoms were reported regarding the EENT system. Neuro: No deficits noted. Cardiovascular: No deficits noted. Respiratory: No deficits noted. GI: Abdomen is round distended, Abd is soft X 4 quads Abdomen is tender to palpation in right lower quadrant and left lower quadrant Reports constipation. : No deficits noted. No signs and/or symptoms were reported regarding the genitourinary system. Derm: No deficits noted. No signs and/or symptoms reported regarding the dermatologic system. Musculoskeletal: No deficits noted. No signs and/or symptoms reported regarding the musculoskeletal system. Historical: - Allergies: 14:27 No Known Allergies; bm7 - Home Meds: 14:27 None [Active]; bm7 - PMHx: 14:27 None; bm7 - PSHx: 14:27 None; bm7 - Immunization history:: Adult Immunizations up to date, Client reports receiving the 2nd dose of the Covid vaccine, Client reports receiving the 1st dose of the Covid vaccine. - Social history:: Smoking status: Patient denies any tobacco usage or history of. - Family history:: not pertinent. - Hospitalizations: : No recent hospitalization is reported. Screenin:36 Abuse screen: Denies threats or abuse. Denies injuries from another. Nutritional tp1 screening: No deficits noted. Tuberculosis screening: No symptoms or risk factors identified. Fall Risk No fall in past 12 months (0 pts). No secondary diagnosis (0 pts). IV access (20 points). Ambulatory Aid- None/Bed Rest/Nurse Assist (0 pts). Gait- Normal/Bed Rest/Wheelchair (0 pts) Mental Status- Oriented to own ability (0 pts). Assessment: 17:36 General: Appears in no apparent distress. comfortable, Behavior is calm, cooperative. tp1 Pain: Complains of pain in right lower quadrant and left lower quadrant Pain does not radiate. Pain currently is 8 out of 10 on a pain scale. Quality of pain is described as crampy, Pain began 1 month. Neuro: Level of Consciousness is awake, alert, Oriented to person, place, time, situation, Denies headache. Cardiovascular: Patient's skin is warm and dry. Respiratory: Airway is patent Respiratory effort is even, unlabored. GI: Abdomen is round non-distended, Abd is soft Abdomen is tender to palpation in right lower quadrant and left lower quadrant. : No signs and/or symptoms were reported regarding the genitourinary system. 17:36 EENT: No signs and/or symptoms were reported regarding the EENT system. Derm: Skin is tp1 pink, warm \T\ dry. Musculoskeletal: Circulation, motion, and sensation intact. Vital Signs: 14:26 BP 113 / 84; Pulse 62; Resp 16; Temp 98.3(TE); Pulse Ox 100% on R/A; Weight 75.75 kg bm7 (R); Height 5 ft. 7 in. (170.18 cm); Pain 8/10; 17:36 BP 113 / 84; Pulse 63; Resp 16; Pulse Ox 96% on R/A; tp1 14:26 Body Mass Index 26.16 (75.75 kg, 170.18 cm) bm7 ED Course: 13:39 Patient arrived in ED. am2 14:27 Triage completed. bm7 14:27 Arm band placed on left wrist. bm7 14:45 Neal Boone MD is Attending Physician. rn 17:36 Rita Felix, NUPUR is Primary Nurse. tp1 17:36 Bed in low position. Call light in reach. Side rails up X 1. tp1 17:36 Pulse ox on. NIBP on. tp1 17:36 No provider procedures requiring assistance completed. tp1 17:56 IV discontinued, intact, bleeding controlled, No redness/swelling at site. Pressure tp1 dressing applied. Administered Medications: 15:15 Drug: NS 0.9% 1000 ml Route: IV; Rate: 1 bolus; Site: left antecubital; kb3 Medication: 17:36 VIS not applicable for this client. tp1 Outcome: 17:20 Discharge ordered by . rn 17:56 Discharged to home ambulatory. tp1 17:56 Condition: good 17:56 Discharge instructions given to patient, Instructed on discharge instructions, follow up and referral plans. Demonstrated understanding of instructions, follow-up care. 17:56 Patient left the ED. tp1 Signatures: Neal Boone MD MD rn Moreno, Amanda am2 McCarthy, Brittany, RN RN bm7 Rita Felix, NUPUR RN tp1 Pinky Buckner RN RN kb3
[2022-01-28 20:08] VITALS: BP 113/84; TEMP 98.3
[2022-01-28 20:11] VITALS: O2SAT 96
== END 2022-01-28 17:56 | disposition home or self-care (01) ==
LOC: ER 13:38
DX: K59.00 Constipation, unspecified (principal)
CPT/HCPCS: 36415; 74177; 80053; 83690; 85025; 99283; J7030; Q9967

== ENCOUNTER 2022-02-09 18:54 | Emergency (ER) | payer SELFPAY ==
--- NOTE | 2022-02-09 19:28 | ER ---
Nurse's Notes [facility] Name: Ganesh Mendes Age: 56 yrs Sex: Male : 1965 Arrival Date: 02/09/2022 Time: 19:05 Bed Waiting Private MD: Diagnosis: ED Course: 02/09 19:05 Patient arrived in ED. am2 19:16 Patient's name was called from ER lobby. No response. hb 19:27 Patient's name was called from ER lobby. Unable to locate patient. Will disposition as hb left without being seen by a provider. Administered Medications: No medications were administered Outcome: 19:27 Patient left the ED. hb Signatures: Claudia Kam RN RN Estrellita Larios am2
== END 2022-02-09 19:27 | disposition left against medical advice (07) ==
LOC: ER 18:54
DX: Z02.9 Encounter for administrative examinations, unspecified (principal)

== ENCOUNTER 2022-04-10 21:52 | Emergency (ER) | payer SELFPAY ==
--- OUTSIDE RECORDS SUMMARY | 2022-04-10 21:55 | XMS REPORT | Continuity of Care Document ---
:1965 Author Organization [facility] t Address [address] [place] [address] Care Team Providers Name Role Phone Joshua Florian Primary Care Physician [phone] Problems This patient has no known problems. Allergies, Adverse Reactions, Alerts This patient has no known allergies or adverse reactions. Medications Ordered Filled Start Stop Current Ordering Indication Dosage Frequency Signature Comments Components Source Medication Medication Date Date Medication? Clinician (SIG) Name Name TAKE 1 2021-05 No TABLET BY 0-22 MOUTH EVERY 00:00: 12 HOURS 00 FOR 7 DAYS Immunizations Ordered Immunization Filled Immunization Date Status Commen ts Source Name Name Moderna COVID-19 2020-08-04 Completed Vaccine 00:00:00 Vital Signs Vital Name Observation Time Observation Value Comments Source Heart Rate 2022-04-08 10:52:00 66.00 /min Respiratory Rate 2022-04-08 10:52:00 BP Systolic 2022-04-08 10:52:00 121 mm[Hg] BP Diastolic 2022-04-08 10:52:00 77 mm[Hg] Weight Measured 2022-04-08 10:52:00 153.40 pounds Height Measured 2022-04-08 10:52:00 67.00 inches Body Temperature 2022-04-08 10:52:00 97.30 degrees Procedures This patient has no known procedures. Plan of Care Planned Activity Planned Date Details Comments Source Goal Plan of Care Note [code = 36526-2] Goal Plan of Care Note [code = 69925-6] Goal Plan of Care Note [code = 70584-9] Goal Plan of Care Note [code = 09370-1] Encounters Start End Encounter Admission Attending Care Care Encounter Source Date/Time Date/Time Type Type Clinicians Facility Department ID 2022-04-08 2022-04-08 Outpatient [facility] [id number] [place] 10:46:11 10:46:11 [address] [place] 2022-04-08 2022-04-08 [facility] [id number] 00:00:00 00:00:00 Visit [id number] Results This patient has no known results.
[2022-04-10 22:43] LABS: Hematocrit 37.8 % (39.6-49.0); Lymphocytes % 43.4 % (15.3-44.8); MCV 91.7 fL (80-100); MPV 8.7 fL (7.6-11.3); RBC Red Blood Cell Count 4.12 M/uL (4.33-5.43)
[2022-04-10 22:57] LABS: Albumin 3.2 g/dL (3.4-5.0); Bilirubin Total 0.5 mg/dL (0.2-1.0); Potassium 3.7 mmol/L (3.5-5.1); Protein, Total 6.2 g/dL (6.4-8.2)
[2022-04-10] MEDS ORDERED: ONDANSETRON 4 MG/2 ML VIAL ONE (23:14)
[2022-04-10] MEDS ORDERED: MORPHINE 4 MG/ML SYR ONE (23:14)
[2022-04-11 00:42] LABS: Urine Blood Negative (Negative); Urine Glucose Negative (Negative); Urine Protein Negative (Negative); Urine Specific Gravity 1.025 (1.005-1.030)
[2022-04-11 01:00] LABS: Urine Bacteria <20 /HPF (<20); Urine RBC <5 /HPF (None Seen)
--- NOTE | 2022-04-11 02:27 | EDPHYS ---
Physician Documentation [facility] Name: Ganesh Mendes Age: 56 yrs Sex: Male : 1965 Arrival Date: 04/10/2022 Time: 21:55 Bed 19 Private MD: ED Physician Martin Marcos HPI: 04/10 22:25 This 56 yrs old Black Male presents to ER via Ambulatory with complaints of Abdominal cp Pain. 22:25 The patient presents with abdominal pain mid abdomen. cp 22:25 Onset: The symptoms/episode began/occurred this morning. cp 22:25 Associated signs and symptoms: Pertinent positives: constipation, testicular pain, cp Pertinent negatives: anorexia, chest pain, diarrhea, dysuria, fever, shortness of breath. The symptoms are described as achy. Historical: - Allergies: 22:06 No Known Allergies; kr3 - Home Meds: 22:06 None [Active]; kr3 - PMHx: 22:06 None; kr3 - PSHx: 22:06 None; kr3 - Immunization history:: Adult Immunizations up to date, Client reports receiving the 2nd dose of the Covid vaccine, Last tetanus immunization: unknown. - Social history:: Smoking status: Patient denies any tobacco usage or history of. ROS: 22:30 Constitutional: Negative for body aches, chills, fever, poor PO intake. cp 22:30 Eyes: Negative for injury, pain, redness, and discharge. cp 22:30 ENT: Negative for drainage from ear(s), ear pain, sore throat, difficulty swallowing, difficulty handling secretions. 22:30 Cardiovascular: Negative for chest pain, edema, palpitations. 22:30 Respiratory: Negative for cough, shortness of breath, wheezing. 22:30 Abdomen/GI: Positive for abdominal pain, constipation, Negative for nausea, vomiting, and diarrhea. 22:30 Back: Negative for pain at rest, pain with movement. 22:30 Neuro: Negative for altered mental status, dizziness, headache, weakness. 22:30 All other systems are negative. Exam: 22:35 Constitutional: The patient appears in no acute distress, alert, awake, cp non-diaphoretic, non-toxic, well developed, well nourished, uncomfortable. 22:35 Head/Face: Normocephalic, atraumatic. cp 22:35 Eyes: Periorbital structures: appear normal, Conjunctiva: normal, no exudate, no injection, Sclera: no appreciated abnormality, Lids and lashes: appear normal, bilaterally. 22:35 ENT: External ear(s): are unremarkable, Nose: is normal, Mouth: Lips: moist, Oral mucosa: pink and intact, moist, Posterior pharynx: Airway: no evidence of obstruction, patent. 22:35 Chest/axilla: Inspection: normal, Palpation: is normal, no crepitus, no tenderness. 22:35 Cardiovascular: Rate: normal, Rhythm: regular. 22:35 Respiratory: the patient does not display signs of respiratory distress, Respirations: normal, no use of accessory muscles, no retractions, labored breathing, is not present, Breath sounds: are clear throughout, no decreased breath sounds, no stridor, no wheezing. 22:35 Abdomen/GI: Inspection: abdomen appears normal, Bowel sounds: active, all quadrants, Palpation: soft, in all quadrants, rebound tenderness, is not appreciated, involuntary guarding, is not appreciated, Hernia: noted in the paraumbilical area and right inguinal area, tenderness, that is moderate. 22:35 Back: pain, is absent, ROM is normal. 22:35 Skin: cellulitis, is not appreciated, no rash present. 22:35 Neuro: Orientation: to person, place \T\ time. Mentation: is normal. Vital Signs: 22:04 Pulse 65; Resp 20; Temp 98.7; Pulse Ox 99% ; Weight 71.21 kg; Height 5 ft. 7 in. kr3 (170.18 cm); Pain 9/10; 23:00 BP 119 / 78; Pulse 68; Resp 18; Pulse Ox 97% ; vc1 23:10 BP 119 / 70; Pulse 68; Pulse Ox 97% ; vc1 04/11 00:00 BP 114 / 77; Pulse 58; Resp 19; Pulse Ox 97% ; vc1 02:35 BP 113 / 89; Pulse 54; Pulse Ox 99% ; vc1 04/10 22:04 Body Mass Index 24.59 (71.21 kg, 170.18 cm) kr3 Procedures: 01:00 Reduction: of the right inguinal area and paraumbilical area, using manipulation, cp Patient tolerated well. hernias manually reduced. MDM: 04/10 22:17 Patient medically screened. 04/11 02:25 Data reviewed: vital signs, nurses notes, lab test result(s), radiologic studies, CT cp scan. 02:25 Differential diagnosis: appendicitis, cholecystitis, Cholelithiasis, non-specific abd cp pain, Testicular Torsion, Ureterolithiasis, urinary tract infection, incarcerated hernia. Counseling: I had a detailed discussion with the patient and/or guardian regarding: the historical points, exam findings, and any diagnostic results supporting the discharge/admit diagnosis, lab results, radiology results, the need for outpatient follow up, for definitive care, a general surgeon, to return to the emergency department if symptoms worsen or persist or if there are any questions or concerns that arise at home. Response to treatment: the patient's symptoms have markedly improved after treatment, and as a result, I will discharge patient. Special discussion: Based on the patient's Hx, exam, and Dx evaluation, there is no indication for emergent surgery or inpatient Tx. It is understood by the patient/guardian that if the Sx's persist or worsen they need to return immediately for re-evaluation. 04/10 22:18 Order name: CBC with Diff; Complete Time: 22:56 04/10 23:19 Interpretation: Normal except: RBC 4.12; HGB 12.4; HCT 37.8. 04/10 22:18 Order name: CMP; Complete Time: 23:19 cp 04/10 23:19 Interpretation: Normal except: GLUC 127; GFR 88; AST 12; ALK 36; TP 6.2; ALB 3.2. 04/10 22:18 Order name: Lipase; Complete Time: 23:19 cp 04/10 22:18 Order name: Urine Microscopic Only; Complete Time: 01:01 cp 04/11 01:01 Interpretation: Reviewed. 04/10 23:37 Order name: CT Abd/Pelvis - IV Contrast Only cp 04/11 00:42 Order name: Urine Dipstick-Ancillary; Complete Time: 00:50 EDMS 04/10 22:18 Order name: IV Saline Lock; Complete Time: 22:31 cp 04/10 22:18 Order name: Labs collected and sent; Complete Time: 22:31 cp 04/10 22:18 Order name: Urine Dipstick-Ancillary (obtain specimen); Complete Time: 00:42 cp Administered Medications: 11/17 23:18 Drug: Zofran (Ondansetron) 4 mg Route: IVP; Site: left antecubital; vc1 23:19 Drug: morphine 4 mg Route: IVP; Infused Over: 4 mins; Site: left antecubital; vc1 Disposition: 04/11 03:05 Co-signature as Attending Physician, Martin Marcos MD I agree with the assessment and kdr plan of care. Disposition Summary: 04/11/22 02:26 Discharge Ordered Location: Home cp Problem: an ongoing problem cp Symptoms: have improved cp Condition: Stable cp Diagnosis - Umbilical hernia without obstruction or gangrene cp - Unilateral inguinal hernia, without obstruction or gangrene cp - Constipation, unspecified cp Followup: cp - With: Juan R Lozano MD - When: 2 - 3 days - Reason: hernia repair Discharge Instructions: - Discharge Summary Sheet cp - Constipation, Adult cp - Inguinal Hernia, Adult cp - Umbilical Hernia, Adult cp Forms: - Medication Reconciliation Form cp - Thank You Letter cp - Antibiotic Education cp - Prescription Opioid Use cp Prescriptions: - Dulcolax Stool Softener (dss) 100 mg Oral capsule - take 1 capsule by ORAL route 2 times per day; 20 capsule; Refills: 0, Product cp Selection Permitted Signatures: Dispatcher [employer] EDMS Martin Marcos MD MD kdr Chintan Patten PA PA cp Ani Luther RN RN vc1 Maria Elena Weeks RN RN kr3
--- NOTE | 2022-04-11 02:27 | ER ---
Nurse's Notes [facility] Name: Ganesh Mendes Age: 56 yrs Sex: Male : 1965 Arrival Date: 04/10/2022 Time: 21:55 Bed 19 Private MD: Diagnosis: Umbilical hernia without obstruction or gangrene;Unilateral inguinal hernia, without obstruction or gangrene;Constipation, unspecified Presentation: 04/10 22:04 Chief complaint: Patient states: Pt reports he has 2 hernias that are increasing in kr3 pain since this morning with associated constipation. Denies fever, vomiting. Coronavirus screen: Vaccine status: Patient reports being unvaccinated. Client denies travel out of the [place] in the last 14 days. Ebola Screen: Patient negative for fever greater than or equal to 101.5 degrees Fahrenheit, and additional compatible Ebola Virus Disease symptoms Patient denies exposure to infectious person. Patient denies travel to an Ebola-affected area in the 21 days before illness onset. Initial Sepsis Screen: Does the patient meet any 2 criteria? No. Patient's initial sepsis screen is negative. Does the patient have a suspected source of infection? No. Patient's initial sepsis screen is negative. Risk Assessment: Do you want to hurt yourself or someone else? Patient reports no desire to harm self or others. Onset of symptoms was April 10, 2022 at 07:00. 22:04 Method Of Arrival: Ambulatory kr3 22:04 Acuity: LELO 3 kr3 Triage Assessment: 22:06 General: Appears in no apparent distress. Behavior is calm, cooperative. Pain: kr3 Complains of pain in epigastric area, right upper quadrant and left upper quadrant Pain does not radiate. Pain currently is 9 out of 10 on a pain scale. Quality of pain is described as sharp. GI: Reports upper abdominal pain, constipation. Historical: - Allergies: 22:06 No Known Allergies; kr3 - Home Meds: 22:06 None [Active]; kr3 - PMHx: 22:06 None; kr3 - PSHx: 22:06 None; kr3 - Immunization history:: Adult Immunizations up to date, Client reports receiving the 2nd dose of the Covid vaccine, Last tetanus immunization: unknown. - Social history:: Smoking status: Patient denies any tobacco usage or history of. Screenin:35 Abuse screen: Denies threats or abuse. Nutritional screening: No deficits noted. vc1 Tuberculosis screening: No symptoms or risk factors identified. Fall Risk None identified. Assessment: 22:25 Reassessment: Instructed patient that I will need a urine sample. Pt stated he will try vc1 in a little while. 23:00 GI: Bowel sounds Abd is soft Abdomen is tender to palpation. vc1 23:20 Reassessment: Ask patient for urine sample pt stated he urinated before he left his vc1 house. 04/11 00:00 Reassessment: Patient and/or family updated on plan of care and expected duration. Pain vc1 level reassessed. Patient states symptoms have improved. 01:00 Reassessment: Patient and/or family updated on plan of care and expected duration. Pain vc1 level reassessed. Patient states symptoms have improved. 02:00 Reassessment: Patient and/or family updated on plan of care and expected duration. Pain vc1 level reassessed. Patient states feeling better. Patient states symptoms have improved. Vital Signs: 04/10 22:04 Pulse 65; Resp 20; Temp 98.7; Pulse Ox 99% ; Weight 71.21 kg; Height 5 ft. 7 in. kr3 (170.18 cm); Pain 9/10; 23:00 BP 119 / 78; Pulse 68; Resp 18; Pulse Ox 97% ; vc1 23:10 BP 119 / 70; Pulse 68; Pulse Ox 97% ; vc1 04/11 00:00 BP 114 / 77; Pulse 58; Resp 19; Pulse Ox 97% ; vc1 02:35 BP 113 / 89; Pulse 54; Pulse Ox 99% ; vc1 04/10 22:04 Body Mass Index 24.59 (71.21 kg, 170.18 cm) kr3 ED Course: 04/10 21:55 Patient arrived in ED. dt4 21:55 Martin Marcos MD is Attending Physician. kdr 21:55 Chintan Patten PA is PHCP. cp 22:06 Triage completed. kr3 22:06 Arm band placed on right wrist. kr3 22:25 Inserted saline lock: 20 gauge in left antecubital area, using aseptic technique. Blood vc1 collected. 22:34 Ani Luther, RN is Primary Nurse. vc1 22:35 Patient has correct armband on for positive identification. Bed in low position. Call vc1 light in reach. 22:36 Pulse ox on. NIBP on. vc1 22:36 Door closed. Lights dimmed. vc1 04/11 00:19 CT Abd/Pelvis - IV Contrast Only In Process Unspecified. EDMS 02:24 Juan R Lozano MD is Referral Physician. cp 02:31 No provider procedures requiring assistance completed. vc1 Administered Medications: 04/10 23:18 Drug: Zofran (Ondansetron) 4 mg Route: IVP; Site: left antecubital; vc1 23:19 Drug: morphine 4 mg Route: IVP; Infused Over: 4 mins; Site: left antecubital; vc1 Medication: 22:35 VIS not applicable for this client. vc1 Outcome: 04/11 02:26 Discharge ordered by . cp 02:35 Discharged to home ambulatory. vc1 02:35 Condition: good 02:35 Discharge instructions given to patient, Instructed on discharge instructions, follow up and referral plans. medication usage, Demonstrated understanding of instructions, follow-up care, medications, Prescriptions given X 1. 02:53 Patient left the ED. vc1 Signatures: Dispatcher [employer] EDMS Martin Marcos MD MD kdr Chintan Patten PA PA cp Ani Luther RN RN vc1 Maria Elena Weeks RN RN kr3 Nadira Felix dt4 Corrections: (The following items were deleted from the chart) 04/10 22:36 22:35 Client placed on continuous cardiac and pulse oximetry monitoring. NIBP vc1 monitoring applied. vc1
[2022-04-11 03:15] VITALS: TEMP 98.7
[2022-04-11 03:20] VITALS: BP 113/89; O2SAT 99
--- NOTE | 2022-04-11 12:02 | RAD REPORT ---
EXAM DESCRIPTION: CT - Abdomen Pelvis W Contrast - 04/11/2022 6:49 am CLINICAL HISTORY: The patient is 56 years old and is Male; abdominal pain TECHNIQUE: Axial computed tomography images of the abdomen and pelvis with intravenous contrast. S agittal and coronal reformatted images were created and reviewed. This CT exam was performed using one or more of the following dose reduction techniques: automated exposure control, adjustment of t he mA and/or kV according to patient size, and/or use of iterative reconstruction technique. COMPARISON: January 28, 2022. FINDINGS: Lung bases: Unremarkable. No mass. No consolidation. ABDOMEN: Liver: Unremarkable. No mass. Gallbladder and bile ducts: Unremarkable. No calcified stones. No ductal dilation. Pancreas: Unremarkable. No mass. No ductal dilation. Spleen: Unremarkable. No splenomegaly. Adrenals: Unremarkable. No mass. Kidneys and ureters: Unremarkable. No solid mass. No hydronephrosis. Stomach and bowel: Unremarkable. No obstruction. No mucosal thickening. PELVIS: Appendix: No findings to suggest acute appendicitis. Bladder: Unremarkable. Reproductive: Unremarkable as visualized. ABDOMEN and PELVIS: Intraperitoneal space: Small amount of free fluid in the dependent pelvis. No free air. Bones/joints: 5 mm of anterolisthesis of L4 on L5. No acute fracture. No dislocation. Soft tissues: Small soft tissue, fluid, and vessel containing right inguinal hernia. Vasculature: Unremarkable. No abdominal aortic aneurysm. Lymph nodes: Unremarkable. No enlarged lymph nodes. IMPRESSION: No acute finding in the abdomen/pelvis. Electronically signed by: Savage Beaulieu MD 04/11/2022 12:45 AM [employer]ARED SERVICES AND OUTS[employer]CING MANAGER Due to temporary technical issues with the PACS/Fluency reporting system, reports are being signed by the in house radiologists without review as a courtesy to insure prompt reporting. The interpreting radiologist is fully responsible for the content of the report
== END 2022-04-11 02:53 | disposition home or self-care (01) ==
LOC: ER 21:52
DX: K42.9 Umbilical hernia without obstruction or gangrene (principal); K40.90 Unilateral inguinal hernia, without obstruction or gangrene, not specified as recurrent; K59.00 Constipation, unspecified
CPT/HCPCS: 36415; 74177; 80053; 81003; 81015; 83690; 85025; 96374; 96375; 99284; J2405; Q9967

== ENCOUNTER 2022-04-20 21:53 | Inpatient (IN) | payer SELFPAY ==
--- OUTSIDE RECORDS SUMMARY | 2022-04-20 21:55 | XMS REPORT | Continuity of Care Document ---
:[address] [facility] t Address [address] [place] [address] Care Team Providers Name Role Phone Joshua Florian Primary Care Physician [phone] Problems This patient has no known problems. [...] Goal Plan of Care Note [code = 06930-0] Goal Plan of Care Note [code = 52788-6] Goal Plan of Care Note [code = 13254-6] Goal Plan of Care Note [code = 04078-6] Encounters Start End Encounter Admission Attending Care Care Encounter Source Date/Time Date/Time Type Type Clinicians Facility Department ID 2022-04-08 2022-04-08 Outpatient SFA SFA [id number] [place] 10:46:11 10:46:11 [address] [place] 2022-04-08 2022-04-08 [facility] [id number] 00:00:00 00:00:00 Visit [id number] Results This patient has no known results.
[2022-04-20] MEDS ORDERED: MORPHINE 4 MG/ML SYR ONE (22:49)
[2022-04-20] MEDS ORDERED: ONDANSETRON 4 MG/2 ML VIAL ONE (22:49)
[2022-04-20 23:38] LABS: Hematocrit 39.6 % (39.6-49.0); Lymphocytes % 43.1 % (15.3-44.8); MCV 92.1 fL (80-100); MPV 8.5 fL (7.6-11.3)
[2022-04-20 23:48] LABS: Albumin 3.5 g/dL (3.4-5.0); Bilirubin Total 0.8 mg/dL (0.2-1.0); Potassium 3.7 mmol/L (3.5-5.1); Protein, Total 6.7 g/dL (6.4-8.2)
[2022-04-21] MEDS ORDERED: FENTANYL CITR 100 MCG/2 ML ONE ×2 (00:30→13:05)
[2022-04-21] MEDS ORDERED: MORPHINE 4 MG/ML SYR IV PRN (01:50)
--- NOTE | 2022-04-21 01:56 | ER ---
Nurse's Notes [facility] Name: Ganesh Mendes Age: 56 yrs Sex: Male : 1965 Arrival Date: 04/20/2022 Time: 21:55 Bed 18 Private MD: Diagnosis: Unilateral inguinal hernia, without obstruction or gangrene, recurrent Presentation: 04/20 22:06 Chief complaint: Patient states: Pt reports pain in his right groin and suprapubic kb3 region since 0700 with associated nausea. Pt with history of inguinal hernia. Coronavirus screen: Vaccine status: Patient reports receiving the 2nd dose of the covid vaccine. Client denies travel out of the [place] in the last 14 days. Ebola Screen: Patient negative for fever greater than or equal to 101.5 degrees Fahrenheit, and additional compatible Ebola Virus Disease symptoms Patient denies exposure to infectious person. Patient denies travel to an Ebola-affected area in the 21 days before illness onset. Initial Sepsis Screen: Does the patient meet any 2 criteria? No. Patient's initial sepsis screen is negative. Does the patient have a suspected source of infection? No. Patient's initial sepsis screen is negative. Risk Assessment: Do you want to hurt yourself or someone else? Patient reports no desire to harm self or others. Onset of symptoms was April 20, 2022 at 07:00. 22:06 Method Of Arrival: Ambulatory 3 22:06 Acuity: LELO 3 kb3 Triage Assessment: 22:08 General: Appears in no apparent distress. Behavior is calm, cooperative. Pain: kb3 Complains of pain in suprapubic area and right inguinal area. GI: Reports lower abdominal pain, nausea. Historical: - Allergies: 22:08 No Known Allergies; kb3 - Home Meds: 22:08 None [Active]; kb3 - PMHx: 22:08 Hernia; kb3 - PSHx: 22:08 None; kb3 - Immunization history:: Adult Immunizations up to date, Client reports receiving the 2nd dose of the Covid vaccine, Last tetanus immunization: up to date. - Social history:: Smoking status: Patient denies any tobacco usage or history of. - Family history:: not pertinent. Screenin:36 Abuse screen: Denies threats or abuse. Denies injuries from another. Nutritional tp1 screening: No deficits noted. Tuberculosis screening: No symptoms or risk factors identified. Fall Risk None identified. Assessment: 22:34 General: Appears in no apparent distress. uncomfortable, Behavior is calm, cooperative. tp1 Pain: Complains of pain in abdomen and pelvis Pain does not radiate. Pain currently is 8 out of 10 on a pain scale. Quality of pain is described as pressure, Is continuous. Neuro: Level of Consciousness is awake, alert, obeys commands, Oriented to person, place, time, situation. Cardiovascular: Patient's skin is warm and dry. Respiratory: Airway is patent Respiratory effort is even, unlabored. GI: Abdomen is round non-distended, Abd is soft X 4 quads Abdomen is tender to palpation X 4 quads. Reports nausea. : No signs and/or symptoms were reported regarding the genitourinary system. EENT: No signs and/or symptoms were reported regarding the EENT system. Derm: Skin is pink, warm \T\ dry. Musculoskeletal: Circulation, motion, and sensation intact. 04/21 00:00 Reassessment: Patient appears in no apparent distress at this time. Patient and/or jb4 family updated on plan of care and expected duration. Pain level reassessed. Patient is alert, oriented x 3, equal unlabored respirations, skin warm/dry/pink. 01:00 Reassessment: Patient appears in no apparent distress at this time. Patient and/or jb4 family updated on plan of care and expected duration. Pain level reassessed. Patient is alert, oriented x 3, equal unlabored respirations, skin warm/dry/pink. 02:00 Reassessment: Patient appears in no apparent distress at this time. Patient and/or jb4 family updated on plan of care and expected duration. Pain level reassessed. Patient is alert, oriented x 3, equal unlabored respirations, skin warm/dry/pink. 02:50 GI: Bowel sounds present X 4 quads. vc1 Vital Signs: 04/20 22:06 BP 105 / 72; Pulse 65; Resp 18; Temp 98.1; Pulse Ox 99% ; Weight 72.57 kg; Height 5 ft. kb3 7 in. (170.18 cm); Pain 10/10; 23:30 BP 112 / 80; Pulse 61; Resp 16; Pulse Ox 98% on R/A; jb4 04/21 00:30 BP 112 / 75; Pulse 66; Resp 16; Pulse Ox 94% on R/A; jb4 01:45 BP 124 / 84; Pulse 76; Resp 16; Pulse Ox 98% on R/A; jb4 02:45 BP 107 / 77; Pulse 67; Resp 15; Temp 98.5(O); Pulse Ox 97% on R/A; vc1 04/20 22:06 Body Mass Index 25.06 (72.57 kg, 170.18 cm) kb3 ED Course: 04/20 21:55 Patient arrived in ED. bp1 22:08 Triage completed. kb3 22:08 Arm band placed on right wrist. kb3 22:11 Chad Osborne MD is Attending Physician. rt 22:36 Patient has correct armband on for positive identification. Bed in low position. Call tp1 light in reach. Pulse ox on. NIBP on. 23:14 Jack Yoo RN is Primary Nurse. 4 04/21 00:14 CT Abd/Pelvis - IV Contrast Only In Process Unspecified. EDMS 01:55 Jack Park MD is Hospitalizing Provider. rt 02:50 No provider procedures requiring assistance completed. Patient admitted, IV remains in vc1 place. 13:19 Primary Nurse role handed off by Jack Yoo RN bd 13:19 Attending Physician role handed off by Chad Osborne MD bd 13:20 Jack Park MD is Attending Physician. bd Administered Medications: 04/20 23:14 Drug: morphine 4 mg Route: IVP; Infused Over: 4 mins; Site: right forearm; jb4 04/21 00:00 Follow up: Response: No adverse reaction; Marked relief of symptoms; Pain is decreased jb4 04/20 23:14 Drug: Zofran (Ondansetron) 4 mg Route: IVP; Site: right forearm; jb4 04/21 00:00 Follow up: Response: No adverse reaction; Marked relief of symptoms jb4 00:34 Drug: fentaNYL (PF) 100 mcg Route: IVP; Site: right forearm; jb4 00:45 Follow up: Response: No adverse reaction; Marked relief of symptoms; Pain is decreased jb4 02:17 Drug: morphine 4 mg Route: IVP; Infused Over: 4 mins; Site: right antecubital; jb4 Medication: 04/20 22:36 VIS not applicable for this client. tp1 Outcome: 04/21 01:55 Decision to Hospitalize by Provider. rt 02:50 Admitted to ER Hold. Please see [facility] for further documentation. vc1 02:50 Condition: good 02:50 Instructed on the need for admit. 12:20 Patient left the ED. vg1 13:20 Patient left the ED. bd Signatures: Dispatcher [employer] EDMS Sarah Marte James, RN RN jb4 Arlen Garcia RN RN vg1 Maria Teresa Sin Tiffany, RN RN tp1 Ani Luther RN RN vc1 Pinky Buckner, RN RN kb3 Chad Osborne MD MD rt
--- NOTE | 2022-04-21 01:57 | EDPHYS ---
Physician Documentation [facility] Name: Ganesh Mendes Age: 56 yrs Sex: Male : 1965 Arrival Date: 04/20/2022 Time: 21:55 Bed 18 Private MD: ED Physician Jack Park HPI: 04/20 23:35 This 56 yrs old Black Male presents to ER via Ambulatory with complaints of Abdominal rt Swelling, Abdominal Pain. 23:35 The patient presents with abdominal pain. Onset: The symptoms/episode began/occurred rt this morning. The symptoms do not radiate. Associated signs and symptoms: none. The symptoms are described as achy. Severity of pain: At its worst the pain was moderate. Patient with history of periumbilical and inguinal hernias presents to the ED with a hernia which she was not able to reduce at home starting this morning. He denies nausea, vomiting. Denies other acute complaints at this time. Symptoms are moderate in severity. No other aggravating or alleviating factors.. Historical: - Allergies: 22:08 No Known Allergies; kb3 - Home Meds: 22:08 None [Active]; kb3 - PMHx: 22:08 Hernia; kb3 - PSHx: 22:08 None; kb3 - Immunization history:: Adult Immunizations up to date, Client reports receiving the 2nd dose of the Covid vaccine, Last tetanus immunization: up to date. - Social history:: Smoking status: Patient denies any tobacco usage or history of. - Family history:: not pertinent. ROS: 23:35 Constitutional: Negative for fever, chills, and weight loss, Eyes: Negative for injury, rt pain, redness, and discharge, ENT: Negative for injury, pain, and discharge, Neck: Negative for injury, pain, and swelling, Cardiovascular: Negative for chest pain, palpitations, and edema, Respiratory: Negative for shortness of breath, cough, wheezing, and pleuritic chest pain, Back: Negative for injury and pain, MS/Extremity: Negative for injury and deformity, Skin: Negative for injury, rash, and discoloration, Neuro: Negative for headache, weakness, numbness, tingling, and seizure, Psych: Negative for depression, anxiety, suicide ideation, homicidal ideation, and hallucinations. 23:35 Abdomen/GI: Positive for abdominal pain, Negative for nausea, vomiting. Exam: 23:35 Constitutional: This is a well developed, well nourished patient who is awake, alert, rt and in no acute distress. Head/Face: Normocephalic, atraumatic. Eyes: Pupils equal round and reactive to light, extra-ocular motions intact. Lids and lashes normal. Conjunctiva and sclera are non-icteric and not injected. Cornea within normal limits. Periorbital areas with no swelling, redness, or edema. ENT: Nares patent. No nasal discharge, no septal abnormalities noted. Tympanic membranes are normal and external auditory canals are clear. Oropharynx with no redness, swelling, or masses, exudates, or evidence of obstruction, uvula midline. Mucous membranes moist. Chest/axilla: Normal chest wall appearance and motion. Nontender with no deformity. No lesions are appreciated. Cardiovascular: Regular rate and rhythm with a normal S1 and S2. No gallops, murmurs, or rubs. Normal PMI, no JVD. No pulse deficits. Respiratory: Lungs have equal breath sounds bilaterally, clear to auscultation and percussion. No rales, rhonchi or wheezes noted. No increased work of breathing, no retractions or nasal flaring. Skin: Warm, dry with normal turgor. Normal color with no rashes, no lesions, and no evidence of cellulitis. MS/ Extremity: Pulses equal, no cyanosis. Neurovascular intact. Full, normal range of motion. Neuro: Awake and alert, GCS 15, oriented to person, place, time, and situation. Cranial nerves II-XII grossly intact. Motor strength 5/5 in all extremities. Sensory grossly intact. Cerebellar exam normal. Normal gait. Psych: Awake, alert, with orientation to person, place and time. Behavior, mood, and affect are within normal limits. 23:35 Abdomen/GI: Tenderness diffusely, mild guarding, easily reducible periumbilical hernia, large right inguinal hernia is present, partially reducible.. Vital Signs: 22:06 BP 105 / 72; Pulse 65; Resp 18; Temp 98.1; Pulse Ox 99% ; Weight 72.57 kg; Height 5 ft. kb3 7 in. (170.18 cm); Pain 10/10; 23:30 BP 112 / 80; Pulse 61; Resp 16; Pulse Ox 98% on R/A; jb4 04/21 00:30 BP 112 / 75; Pulse 66; Resp 16; Pulse Ox 94% on R/A; jb4 01:45 BP 124 / 84; Pulse 76; Resp 16; Pulse Ox 98% on R/A; jb4 02:45 BP 107 / 77; Pulse 67; Resp 15; Temp 98.5(O); Pulse Ox 97% on R/A; vc1 04/20 22:06 Body Mass Index 25.06 (72.57 kg, 170.18 cm) kb3 MDM: 04/20 22:26 Patient medically screened. rt 04/21 02:29 Differential diagnosis: Regulated, incarcerated hernia, bowel obstruction. Data rt reviewed: vital signs, nurses notes, lab test result(s), radiologic studies. ED course: Patient presents to the ED with recurrence of a right inguinal and periumbilical hernia. The periumbilical hernia was easily reducible, was unable to reduce the inguinal hernia. CT scan shows evidence of impending obstruction, at risk for strangulation. Labs are benign. I discussed the case with general surgery who will admit the patient for operative management.. 04/20 22:31 Order name: CBC with Diff; Complete Time: 00:08 rt 04/20 22:31 Order name: CMP; Complete Time: 00:08 rt 04/20 22:36 Order name: Lactate w/ 2H reflex if indic.; Complete Time: 00:13 rt 04/20 23:32 Order name: CT Abd/Pelvis - IV Contrast Only rt 04/21 07:21 Order name: SARS-COV-2 Antigen Rapid bd 04/21 07:54 Order name: SARS-COV-2 Antigen Rapid EDMS 04/21 01:54 Order name: NPO EDMS Administered Medications: 04/20 23:14 Drug: morphine 4 mg Route: IVP; Infused Over: 4 mins; Site: right forearm; jb4 04/21 00:00 Follow up: Response: No adverse reaction; Marked relief of symptoms; Pain is decreased jb4 04/20 23:14 Drug: Zofran (Ondansetron) 4 mg Route: IVP; Site: right forearm; jb4 04/21 00:00 Follow up: Response: No adverse reaction; Marked relief of symptoms [facility] 00:34 Drug: fentaNYL (PF) 100 mcg Route: IVP; Site: right forearm; jb4 00:45 Follow up: Response: No adverse reaction; Marked relief of symptoms; Pain is decreased jb4 02:17 Drug: morphine 4 mg Route: IVP; Infused Over: 4 mins; Site: right antecubital; jb4 Disposition Summary: 04/21/22 01:55 Hospitalization Ordered Hospitalization Status: Observation rt Provider: Jack Park rt Condition: Fair rt Problem: an acute exacerbation rt Symptoms: are unchanged rt Bed/Room Type: Standard rt Location: Telemetry/MedSurg (observation)(04/21/22 13:19) bd Room Assignment: 409(04/21/22 13:19) bd Diagnosis - Unilateral inguinal hernia, without obstruction or gangrene, recurrent rt Forms: - Medication Reconciliation Form rt - SBAR form rt Signatures: Dispatcher [employer] EDMS Sarah Marte Cindy, RN RN cg Bryson, James RN RN jb4 Pinky Buckner RN RN kb3 Chad Osborne MD MD rt Corrections: (The following items were deleted from the chart) 02:45 01:55 Telemetry/MedSurg (observation) rt cg 02:45 01:55 rt cg 13:19 02:45 [facility] ER HOLD cg bd 13:19 02:45 ERHOLD- cg bd
[2022-04-21] MEDS ORDERED: MORPHINE 4 MG/ML SYR ONE ×4 (02:13→11:54)
[2022-04-21 02:55] VITALS: BMI 25.0
[2022-04-21] MEDS ORDERED: NA CHLORIDE 0.9% 1,000 ML ONE (03:08)
[2022-04-21] MEDS: NA CHLORIDE 0.9% 1,000 ML IV SCH ×3 (03:18→22:38)
[2022-04-21] MEDS ORDERED: ONDANSETRON 4 MG/2 ML VIAL ONE ×2 (05:23→14:42)
[2022-04-21] MEDS: ONDANSETRON 4 MG/2 ML VIAL IV PRN ×3 (05:28→18:01)
[2022-04-21 07:53] LABS: SARS-CoV-2 Antigen Rapid Res Negative (Negative)
[2022-04-21] MEDS: MORPHINE 4 MG/ML SYR IV PRN ×4 (09:55→23:54)
--- NOTE | 2022-04-21 11:03 | RAD REPORT ---
EXAM DESCRIPTION: Abdomen Pelvis W Contrast CLINICAL HISTORY: Abdominal pain, acute, nonlocalized COMPARISON: 04/11/2022 TECHNIQUE: CT of the abdomen and pelvis performed following IV administration of iodinated contras t.. This exam was performed according to our departmental dose-optimization program, which includes a utomated exposure control, adjustment of the mA and/or kV according to patient size and/or use of ite rative reconstruction technique. FINDINGS: Lung Bases: The visualized lung bases are clear. Bones: No destructive bone lesions identified. Abdomen: Liver: The liver has normal size and density. No intrahepatic biliary dilatation. Stable small hypode nsity in the right hepatic lobe which may represent a small cyst. Gallbladder: No calcified gallstones. Spleen, Pancreas, and Adrenal Glands: The spleen, pancreas, and adrenal glands are unremarkable. Kidneys: No hydronephrosis or obstructing calculus. Right renal cyst. No follow-up imaging recomm ended. Vasculature: The aorta and IVC have normal caliber and position. The portal vein is patent. The pro ximal visceral and renal arteries are patent. Stomach: The stomach and duodenum have normal course. Other: No free intraperitoneal air. Small amount of free fluid. Pelvis: Bladder: Urinary bladder is unremarkable. Bowel: Interval development of large right inguinal hernia containing cecum, appendix, and distal i leum. Mild prominence of the distal small bowel without definitive obstruction identified. Small amou nt of free fluid. Relatively narrow neck. Appendix: Normal appendix. Pelvis: Prostate is not enlarged. IMPRESSION: 1. Interval development of large right inguinal hernia containing cecum, appendix, and d istal ileum. Mild prominence of the distal small bowel may represent early obstruction. Small amount of free fluid. This hernia is at risk for strangulation.Surgical consultation recommended. Electronically signed by: Cholo Hill 04/21/2022 1:36 AM [employer] OPER[employer] MANAGER Due to temporary technical issues with the PACS/Fluency reporting system, reports are being signed by the in house radiologists without review as a courtesy to insure prompt reporting. The interpreting radiologist is fully responsible for the content of the report.
[2022-04-21] MEDS: Ringers Lactate 1,000 ML IV ONE ×2 (12:20→14:00)
[2022-04-21] MEDS ORDERED: propofoL 200 MG/20 ML VIAL IV ONE (13:04)
[2022-04-21] MEDS ORDERED: MIDAZOLAM HCL 2 MG/2 ML INJ ONE (13:05)
[2022-04-21] MEDS ORDERED: ROCURONIUM 50 MG/5 ML VIAL IV ONE ×2 (13:05→14:45)
[2022-04-21] MEDS ORDERED: LIDOCAINE 1% MPF 5 ML VIAL ONE (13:05)
[2022-04-21] MEDS ORDERED: CEFAZOLIN SODIUM 1 GM/VIAL ONE (13:11)
--- NOTE | 2022-04-21 13:27 | P.HP ---
Date of Service: 04/21/22 PC: This 56-year-old male presented to the emergency room with severe pain in his right groin. HPC: Patient has noticed a bulge in his right groin off and on for the last 4 years. Has been causing increasing pain and discomfort. Also has pain in the periumbilical area. He says he used to be able to reduce his hernia, but now it is stopped. PSHx: Negative PMHx: Negative Social Hx: Denies any allergies, lives by himself Sys R: No cough, wheeze, shortness of breath. No chest pain or palpitations no urinary complaints. O/E: Awake alert vital signs are stable HEENT: Not jaundiced Chest: Air entry equal bilaterally Abd: Soft nontender, small periumbilical hernia, right inguinal hernia, nonreducible [place]: Intact Data: CT scan demonstrates incarcerated right inguinal hernia, umbilical hernia Impression: This patient has incarcerated right inguinal hernia. Plan: I will taken the operating room for reduction and repair of his incarcerated right inguinal hernia. The risks of this procedure have been discussed. The possibility of bleeding, infection, injury to bowel blood vessels nerves and surrounding structures were outlined. The possibility of recurrence, need for further surgeries and procedures were explained. The fact that we will be using mesh, was outlined. He understands and wants us to proceed.
[2022-04-21] MEDS ORDERED: dexAMETHasone 10 MG/ML VIAL ONE (14:03)
[2022-04-21] MEDS ORDERED: KETOROLAC 30 MG/ML INJ ONE (14:42)
[2022-04-21] MEDS ORDERED: EPHEDRINE SULF 50 MG/ML VIAL ONE (14:42)
[2022-04-21] MEDS ORDERED: NEOSTIGMINE 1 MG/ML -5 ML ONE (15:51)
[2022-04-21] MEDS ORDERED: GLYCOPYRROLATE 0.2 MG/ML SYR ONE ×2 (15:51)
[2022-04-21] MEDS ORDERED: Ringers Lactate 1,000 ML IV ONE (15:57)
--- NOTE | 2022-04-21 16:06 | P.OP ---
Preoperative diagnosis: Incarcerated right inguinal hernia, umbilical hernia Postoperative diagnosis: The same intra-abdominal adhesions Primary procedure: Laparoscopic reduction and repair of right inguinal hernia Secondary procedure: Laparoscopic repair of umbilical hernia Anesthesia: General Estimated blood loss: Less than 20 cc Specimen: 1 adhesion Operative Technique: Patient brought the operating room and placed supine on the table. After the induction of adequate general endotracheal anesthesia, there the abdomen was prepped with a DuraPrep solution, a Gutierrez catheter was inserted, and he was draped in the usual aseptic manner. A subumbilical incision was made. This brought down through the skin and subcutaneous tissue. The Visiport was now used to enter the peritoneal cavity and created pneumoperitoneum to approximately 12 mmHg. The patient was now placed in marked Trendelenburg. On visualization of the right lower quadrant we could see the patient had a large sliding hernia in this area. The distal ileum, ileocecal valve, and cecum were involved with this hernia. Applying gentle pressure from the outside we were able to reduce it back into the periton eal cavity. There was evidence of congestion but no strangulation of this portion of the bowel. Attention was turned back towards our umbilical incision. By pulling the skin down towards the feet, we could expose the fascia over the rectus muscle. An opening was made into the sheath. The balloon dissector was now passed down through this towards the pubic symphysis. We were able to create a preperitoneal space which we pressurized to approximately 12 mmHg. Under direct vision a 5 mm trocar was placed in the right lateral side of the abdomen. Another 1 in the midline. We were able to visualize the hernia sac. It extended downwards and was contiguous with the scrotum itself. Gentle dissection allowed us divided at the level of the gubernaculum. The hernia sac was now retracted back into the peritoneal cavity. Attention was now turned back towards the intraperitoneal component. We were we open the fascia along the anterior abdominal wall on the right side just above the level of the conjoined tendon tendon only and and ligament. The peritoneum was now able to be reflected downward. A piece of right medium mesh was introduced into the space. We were able to attach the ligament very medially to Saurabh's ligament and out laterally. A good coverage of the hernia openings having been covered adequately, the abdomen was now reperitonealized. The peritoneum was elevated to the anterior abdominal wall. By taking down the pressure and the peritoneal contents, were able to retract the peritoneum to close the space that we had created. Attention was now turned towards the umbilicus. The patient had a 1.5 cm umbilical hernia in this area. Applying gentle traction were able to pull this down and dissect off the large adhesion that had formed in this area. This was sent for histopathology. The umbilical defect was now approximated using the Endo Close and absorbable sutures. Adequate hemostasis having been ensured, the patient was taken out of Trendelenburg. The pneumoperitoneum was now collapsed. The trochars were removed. The fascial defect at the umbilicus was closed using a interrupted suture placed with the Endo Close. Princess were now applied to the skin. At the end of the procedure the patient was in a stable condition was sent to the recovery room. Needle sponge instrument count were correct. No drains were placed. The Gutierrez catheter had been removed. Complications: None Transferred to: Recovery Room Condition: Good
[2022-04-21] MEDS ORDERED: SUCCINYLCHOLINE 20 MG/ML (10 ML) IV ONE (16:25)
[2022-04-21] MEDS ORDERED: PROMETHAZINE INJ 25 MG/ML AMP ONE (16:34)
--- NOTE | 2022-04-21 16:44 | RAD REPORT ---
EXAM DESCRIPTION: RAD - Chest Single View - 04/21/2022 4:25 pm CLINICAL HISTORY: R/O ASPIRATION COMPARISON: Abdomen Pelvis W Contrast dated 04/21/2022 FINDINGS: Lines: None. Lungs: Mild opacification medially within the right lung base. Pleural: No significant pleural effusions or pneumothorax. Cardiac: The heart size is within normal limits. Mediastinum: Within normal limits. Bones: No acute fractures. Other: None IMPRESSION: Mild opacities in the medial right lung base could reflect atelectasis and/or aspiration pneumonitis. The left lung is clear.
[2022-04-21] MEDS: HYDROCODONE/APAP 7.5/325 MG TAB PO PRN (21:32)
[2022-04-22] MEDS: MORPHINE 4 MG/ML SYR IV PRN ×2 (06:26→22:49)
[2022-04-22] MEDS: NA CHLORIDE 0.9% 1,000 ML IV SCH ×3 (08:00→20:03)
[2022-04-22] MEDS: HYDROCODONE/APAP 7.5/325 MG TAB PO PRN ×2 (09:50→16:12)
--- NOTE | 2022-04-22 13:43 | P.PN ---
Date of Service: 04/22/22 S: Patient's initial problem of pain in his right groin is resolved, but very sore on the right side of his abdomen. Has not been up out of bed yet as he says he is felt weak. Also has some nausea unable to hold down food today. O: Abdomen is soft, mildly distended, faint bowel sounds. Mildly tympanic. Incisions are clean. A: Surgically stable, but does have what appears to be mild postoperative ileus. P: We will work on getting the patient up and mobilize today. He needs to get out of bed and walk. I have explained to this to him in detail. Continue with his incentive spirometry. I will leave him on a regular diet, and he just advised him to pick at food that he would like to eat. I will also give him some milk of magnesia to help him start having bowel movements. Anticipate discharge in a.m.
[2022-04-22] MEDS ORDERED: MAGNESIUM CITRATE 300 ML BOT PO SCH (14:00)
[2022-04-22] MEDS ORDERED: MAGNESIUM HYDROXIDE 8% 30 ML PO ONE (14:15)
[2022-04-23] MEDS: HYDROCODONE/APAP 7.5/325 MG TAB PO PRN ×2 (01:01→14:14)
[2022-04-23] MEDS: ONDANSETRON 4 MG/2 ML VIAL IV PRN (01:09)
[2022-04-23] MEDS: NA CHLORIDE 0.9% 1,000 ML IV SCH ×2 (04:00→14:00)
[2022-04-23] MEDS: MORPHINE 4 MG/ML SYR IV PRN (09:46)
[2022-04-23 10:20] VITALS: O2SAT 92
[2022-04-23 16:53] VITALS: BP 136/81; TEMP 98.6
== END 2022-04-23 19:15 | disposition home or self-care (01) | DRG 351 ==
LOC: ER 21:53 → ERHOLD 04-21 02:02 → 4TH 04-21 17:46 → OBSVTOIN 04-21 20:32
PROVIDERS: ADMIT Surgery; ATTEND Surgery
PROC: 0WQF4ZZ Repair Abdominal Wall, Percutaneous Endoscopic Approach (ICD-10-PCS; 2022-04-21)
PROC: 0YU54JZ Supplement Right Inguinal Region with Synthetic Substitute, Percutaneous Endoscopic Approach (ICD-10-PCS; principal; 2022-04-21 13:00)
DX: K40.31 Unilateral inguinal hernia, with obstruction, without gangrene, recurrent (principal); K56.7 Ileus, unspecified; K91.89 Other postprocedural complications and disorders of digestive system; K42.9 Umbilical hernia without obstruction or gangrene; K66.0 Peritoneal adhesions (postprocedural) (postinfection); Y83.8 Other surgical procedures as the cause of abnormal reaction of the patient, or of later complication, without mention of misadventure at the time of the procedure; Y92.239 Unspecified place in hospital as the place of occurrence of the external cause; Z20.822 Contact with and (suspected) exposure to COVID-19
CPT/HCPCS: 36415; 71045; 74177; 80053; 83605; 85025; 87811; 88302; 99285; G0378; J0330; J0690; J1100; J2001; J2250; J2405; J2550; J2704; J2710; J3010; J7030; J7120; Q9967